=== PATIENT | female | born 1995 | race Hispanic/Latino ===

== ENCOUNTER 2018-06-20 13:56 | Inpatient (IN) | payer OTHER ==
[2018-06-20] MEDS ORDERED: Acetaminophen 325 MG TAB PO PRN (15:09)
[2018-06-20] MEDS ORDERED: Zolpidem Tartrate 5 MG TAB PO PRN (15:09)
[2018-06-20] MEDS ORDERED: Ondansetron PF 4 MG/2 ML Vial IVP PRN (15:09)
[2018-06-20] MEDS ORDERED: Ondansetron ODT 4 MG TAB PO PRN (15:09)
[2018-06-20] MEDS ORDERED: cefOXitin 2 GM in Sodium Chloride 0.9% 100 ML IVPB SCH (16:00)
[2018-06-20 16:03] VITALS: BMI 25.3
[2018-06-20] MEDS: Sodium Chloride 0.9% 1,000 ML IV SCH (16:03)
[2018-06-20] MEDS: cefOXitin Sodium/Dextrose,Iso 2 GM in Premix Bag 1 BAG IVPB SCH ×2 (16:51→21:46)
[2018-06-20] MEDS: HYDROcodone/Acetaminophen 5/325 mg Tablet PO PRN ×2 (17:34→21:44)
[2018-06-20] MEDS ORDERED: Morphine 2 MG/ML SYRINGE SLOW IVP PRN (18:05)
--- NOTE | 2018-06-20 18:08 | PDOC.FPRHP ---
- History of Present Illness Chief Complaint: abdominal pain History of Present Illness: 22 yo f with no pmhx who presents as a transfer from [facility] for b/l TOA. She states that three weeks ago she started having constant lower abdominal b/l pain with sharp pains throughout her abdomen. She initially went to [facility] where they did a CT scan three weeks ago which was negative for any infection. She was told that she had gas pains and sent home with ibuprofen. She then two days later returned to [facility] for continued pain and had an ultrasound done which was concerning for a ruptured ovarian cyst. She was discharged home with pain medications and a medication for a UTI (keflex). She was seen by her sales operations associate 2 weeks later who was concerned for a fungal infection after being on keflex and started her on OCPs (on Saturday of this week ). She then went back to [facility] for worsening pain the past two nights, had a repeat CT scan and pelvic US and exam and found to have bilateral TOAs and was transferred here d/t insurance coverage. She denies vaginal discharge, dysuria, , n/v/d, fever. - Allergies/Adverse Reactions Allergies Allergy/AdvReac Type Severity Reaction Status Date / Time No Known Allergies Allergy Verified 06/20/18 15:01 - Home Medications Medication Instructions Recorded Confirmed Type Dicyclomine [Bentyl] 20 mg PO QID PRN 06/20/18 06/20/18 History - History PMHx: none PSHx: none FHx:none Social:marijuana use frequently (multiple times per week); alcohol use occasionally on the weekends; denies drug use; endorses prior hx of sexual activity - Review of Systems General: denies: fever/chills, weight/appetite/sleep changes ENT: denies: nasal congestion, rhinorrhea Respiratory: denies: cough, congestion, shortness of breath Cardiovascular: denies: chest pain, edema Gastrointestinal: reports: abdominal pain. denies: nausea, vomiting, diarrhea, GI bleeding Genitourinary: denies: dysuria, discharge Skin: denies: rashes, lesions Musculoskeletal: denies: pain, tenderness Neurological: denies: numbness, syncope Psychological: denies: anxiety, depression - Vital signs Selected Entries 06/20/18 15:50 Temperature 99.5 F Pulse Rate 83 Blood Pressure 100/68 [Semi-Fowlers] Respiratory 16 Rate O2 Sat by Pulse 99 Oximetry Oxygen Delivery Room Air Method - Physical Exam Constitutional: NAD, awake, alert and oriented HEENT: normocephalic and atraumatic, PERRLA Heart: RRR, normal S1/S2, no murmurs/rubs/gallops Lungs: CTAB, no respiratory distress, no rales/rhonchi, no wheezing Abdomen: soft, other (tender to palpation in left lower quadrant, suprapubic, and right lower quadrant; no CVA tenderness) Skin: no rash/lesions, good turgor, capillary refill <2 seconds Heme/Lymphatic: no unusual bruising or bleeding, no purpura Psychiatric: normal mood and affect, good judgment and insight FMR H&P: Results - Labs Lab results: [facility] labs: wbc 22,000 UA +ketones, negative leukocytes or nitrites, + blood bhcg: negative Additional comment: CT evidence from [facility] of b/l TOAs FMR H&P: A/P - Problem List (1) Tubo-ovarian abscess Current Visit: Yes Status: Acute Code(s): N70.93 - SALPINGITIS AND OOPHORITIS, UNSPECIFIED (2) PID (acute pelvic inflammatory disease) Current Visit: Yes Status: Acute Code(s): N73.0 - ACUTE PARAMETRITIS AND PELVIC CELLULITIS - Plan 22 yo F transferred from [facility] for b/l TOA. #PID #TOA, bilateral- -Pt started on cefoxitin and doxycycline as well as NS @ 125 ml/hr [place] [address] @ [facility], cbc ordered for in the am -pt provided with norco prn moderate pain and morphine prn breakthrough pain -if pt fevers, would send blood and urine cx at that time FMR H&P: Upper Level - Plan Date/Time: 06/20/181807 I, [], have evaluated this patient and agree with findings/plan as outlined by fashion styling intern resident. Pertinent changes/additions are listed here. Addendum - Attending - Attending Attestation Date/Time: 06/20/182113 I personally evaluated the patient and discussed the management with Dr. Umaña. I agree with the History, Examination, Assessment and Plan documented above.
[2018-06-20] MEDS: Doxycycline 100 MG CAP PO SCH (21:42)
[2018-06-20] MEDS: Famotidine 20 MG TAB PO SCH (21:42)
[2018-06-21] MEDS: Sodium Chloride 0.9% 1,000 ML IV SCH ×5 (01:45→21:23)
[2018-06-21] MEDS: cefOXitin Sodium/Dextrose,Iso 2 GM in Premix Bag 1 BAG IVPB SCH ×3 (04:20→20:40)
[2018-06-21 04:34] LABS: #Eosinphils 0.1 thou/uL (0.0-0.7); #Lymphocytes 1.7 thou/uL (1.20-3.40); #Monocytes 1.3 thou/uL (0.11-0.59); #Neutrophils 9.2 thou/uL (1.40-6.50); %Basophils 0.3 % (0.0-1.0); %Eosinophils 0.9 % (0.0-10.0); %Monocytes 10.2 % (0.0-4.0); %Neutrophils 74.5 % (31.0-61.0); Hemoglobin 10.5 g/dL (12.0-16.0); Mean Corpuscular HGB CONC 33.7 g/dL (32.0-36.0); Mean Corpuscular Hemoglobin 30.9 pg (25.0-35.0); Mean Corpuscular Volume 91.6 fL (78.0-98.0); Mean Platelet Volume 7.4 fL (7.4-10.4); Platelet Count 361 thou/uL (130-400); RBC Distribution Width 11.4 % (11.5-14.5); White Blood Cell (WBC) Count 12.4 thou/uL (4.8-10.8)
--- NOTE | 2018-06-21 07:21 | PDOC.FM ---
- Subjective Subjective: Improved this morning. Requiring some norco for pain control but states pain is improved. Endorses decreased appetite and some nausea last night. N/V prior two nights as well. Afebrile overnight. - Objective MAR Reviewed: Yes Vital Signs & Weight: Vital Signs (12 hours) Temp Pulse Resp BP Pulse Ox 06/21/18 03:45 98.0 F 85 16 124/77 94 L 06/20/18 23:28 99.4 F 87 16 93/62 98 06/20/18 20:00 98 06/20/18 19:38 98.4 F 87 16 106/71 98 Weight Weight 60.781 kg Result Diagrams: 06/21/18 04:18 Phys Exam - Physical Examination Constitutional: NAD HEENT: PERRLA, moist MMs Respiratory: no wheezing, no rales, clear to auscultation bilateral Cardiovascular: RRR, no significant murmur Gastrointestinal: soft, non-tender, no distention Musculoskeletal: no edema, pulses present Neurological: non-focal, normal sensation Psychiatric: normal affect, A&O x 3 Dx/Plan (1) Tubo-ovarian abscess Code(s): N70.93 - SALPINGITIS AND OOPHORITIS, UNSPECIFIED Status: Acute (2) PID (acute pelvic inflammatory disease) Code(s): N73.0 - ACUTE PARAMETRITIS AND PELVIC CELLULITIS Status: Acute - Plan Plan: 22 yo F transferred from [facility] for b/l TOA. #PID #TOA, bilateral- -Pt started on cefoxitin and doxycycline as well as NS @ 125 ml/hr last night. Will continue abx for a total of 10-14 days. Pt was nauseous and vomiting the last few nights, if tolerating po will consider switching cefoxitin to a po option tomorrow such as clinidamicin with [place]xy[place]ine. [place] [address] [place] [facility], wbc down to 12,000 this am -pt provided with norco prn moderate pain and morphine prn breakthrough pain -if pt fevers, would send blood and urine cx at that time dispo: consider dc if afebrile 24-48 hours dvt prophylaxis: SCDs Code: full
[2018-06-21] MEDS: HYDROcodone/Acetaminophen 5/325 mg Tablet PO PRN ×3 (07:45→20:43)
[2018-06-21] MEDS: Famotidine 20 MG TAB PO SCH ×2 (07:45→20:43)
--- NOTE | 2018-06-21 09:15 | PDOC.EVN ---
Event Note - Event Note Event Note: Called [facility] spoke with Micro, no cultures urine, blood , or swabs were ordered dating back to June 03 spoke with radiology dept, they will fax over reports from ct last night, as was as CT and US from June 03 Addendum - Attending - Attending Attestation Date/Time: 06/21/18 7153 I discussed the management with Dr. Eldridge. I agree with the information documented above Will attempt to obtain reports of her imaging from [facility].
[2018-06-21] MEDS: Doxycycline 100 MG CAP PO SCH ×2 (10:40→20:42)
--- NOTE | 2018-06-22 01:49 | PDOC.EVN ---
Event Note - Event Note Event Note: S: Patient resting comfortably. States she was able to eat supper w/o any N/V/D. Pain is "0 or 1" now. Chris has been able to ambulate to the restroom and void without pain. She denies feeling fevers, chills, or sweats. No bleeding or discharge. PHYSICAL EXAMINATION: General: NAD, alert and oriented x3 HEENT: PERRLA, EOMI, normal sclera, oropharynx without erythema or exudate Neck: Supple. Full ROM. Heart/Cardiovascular System: RRR, Cap refill < 3 seconds, no rub, no murmur Lungs/Respiratory System: clear to auscultation bilaterally. No increased work of breathing. Room air. Abdomen/Gastro-Intestinal System: soft, normal bowel sounds, mild tenderness to LUQ, no guarding/rebound Extremities: Warm extremities. No cyanosis or edema. Neuro: No gross deficits appreciated. CN 2-12 grossly intact Psychiatry: Awake, Alert and cooperative with exam Skin: No lesions, rashes, or ulcers Musculoskeletal: Full ROM A/P 22 yo F transferred from [facility] for b/l TOA. #PID vs TOA, bilateral- - patient has responded very well to abx, pain is almost totally resolved - WBC 22-> 12 - afebrile, tolerating PO - anticipate d/c today on 14 day course of doxy 100 mg BID, Flaggyl 500 mg BID - patient tested postive for chlamydia in clinic 06/17 per her report - imaging records requested from [facility] at 0900 on 06/21/18 but were never received - no blood or urine cultures were taken per micro lab at [facility] Dispo: anticipate d/c later today Agree with attila. Improving on Mefoxin and Doxycycline. Anticipate DC post 48 hrs AF, then home on PO as above x 10 days.
[2018-06-22] MEDS: cefOXitin Sodium/Dextrose,Iso 2 GM in Premix Bag 1 BAG IVPB SCH ×2 (04:29→16:34)
[2018-06-22 05:00] LABS: Mean Corpuscular HGB CONC 33.8 g/dL (32.0-36.0); Mean Corpuscular Volume 91.8 fL (78.0-98.0); Mean Platelet Volume 7.6 fL (7.4-10.4); Platelet Count 398 thou/uL (130-400); RBC Distribution Width 11.3 % (11.5-14.5); Red Blood Cell (RBC) Count 3.56 mill/uL (4.00-5.20); White Blood Cell (WBC) Count 9.6 thou/uL (4.8-10.8)
[2018-06-22] MEDS: Sodium Chloride 0.9% 1,000 ML IV SCH (08:03)
[2018-06-22] MEDS: Famotidine 20 MG TAB PO SCH (08:05)
[2018-06-22] MEDS: HYDROcodone/Acetaminophen 5/325 mg Tablet PO PRN ×2 (08:05→17:33)
[2018-06-22] MEDS: Doxycycline 100 MG CAP PO SCH (08:06)
[2018-06-22 16:25] VITALS: BP 96/54; TEMP 98.2
== END 2018-06-22 18:08 | disposition home or self-care (01) | DRG 759 ==
LOC: UNDOADMIN 13:56 → SURG B 13:56
PROVIDERS: ADMIT Obstetrics & Gynecology; ATTEND Obstetrics & Gynecology
DX: N70.93 Salpingitis and oophoritis, unspecified (principal); N73.9 Female pelvic inflammatory disease, unspecified
CPT/HCPCS: 36415; 85025; 85027; J0694; J7050